=== PATIENT | female | born 1960 | race Caucasian/White ===

== ENCOUNTER 2018-03-18 16:22 | Emergency (ER) | payer MEDICARE, MEDICAID ==
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
[2018-03-18] MEDS ORDERED: Clotrimazole 1% Vaginal Crm 45 GM Tube VAG SCH (19:45)
[2018-03-18] MEDS: Clotrimazole 1% Crm 30 GM Tube ONE ×2 (20:06→20:08)
== END 2018-03-18 20:16 ==
LOC: JP.ED 16:22
DX: B37.3 Candidiasis of vulva and vagina (principal); Z88.5 Allergy status to narcotic agent
CPT/HCPCS: 81003; 87210; 99285; A9270-GY